=== PATIENT | female | born 1960 | race African-American/Black ===

== ENCOUNTER 2018-09-20 21:28 | Emergency (ER) | payer MEDICARE, MEDICAID ==
[~2018-09-20] VITALS: Ht 162.6 cm; Wt 61.4 kg
[~2018-09-20 21:28] MED LIST: ALBU17AE27 IH; LISI20TA PO; METO25 PO
[2018-09-20] MEDS ORDERED: PREG50 PO (21:38)
[2018-09-20 21:44] LABS: GLUCOSE,POINT OF CARE 138 MG/DL (70-110)
[2018-09-20] MEDS ORDERED: KETOROLAC TROMETHAMINE 30 MG/ML VIAL IM ONE (22:45)
[2018-09-20] MEDS ORDERED: ONDANSETRON HCL 4 MG TABLET PO ONE (23:45)
[2018-09-20 23:53] VITALS: BP 124/96
== END 2018-09-20 23:56 | disposition home or self-care (01) ==
LOC: EMS 21:29
DX: S43.032A Inferior subluxation of left humerus, initial encounter (principal); I11.0 Hypertensive heart disease with heart failure; I50.9 Heart failure, unspecified; E11.9 Type 2 diabetes mellitus without complications; K21.9 Gastro-esophageal reflux disease without esophagitis; G89.29 Other chronic pain; F17.210 Nicotine dependence, cigarettes, uncomplicated; Z90.10 Acquired absence of unspecified breast and nipple; Z85.3 Personal history of malignant neoplasm of breast; Z88.6 Allergy status to analgesic agent; Z88.5 Allergy status to narcotic agent; Z88.0 Allergy status to penicillin; Z88.2 Allergy status to sulfonamides; Z79.899 Other long term (current) drug therapy; X58.XXXA Exposure to other specified factors, initial encounter; Y93.89 Activity, other specified; Y92.89 Other specified places as the place of occurrence of the external cause; Y99.8 Other external cause status
CPT/HCPCS: 73030; 82962; 96372; 99283; J1885; Q0162

== ENCOUNTER 2024-05-30 15:30 | Emergency (ER) | payer MEDICARE, MEDICAID ==
[~2024-05-30] VITALS: Ht 162.6 cm; Wt 56.8 kg
[~2024-05-30 15:30] MED LIST changes: +PREG50 PO
[2024-05-30 15:43] VITALS: TEMP 98.2
[2024-05-30] MEDS: SODIUM PHOSPHATE,MONO-DIBASIC 133 ML ENEMA PR ONE (18:36)
[2024-05-30] MEDS ORDERED: POLY119P3 PO (19:32)
[2024-05-30 20:01] VITALS: BP 154/76; PULSE 75; RESP 18
== END 2024-05-30 20:06 | disposition home or self-care (01) ==
LOC: EMS 15:35
DX: K56.41 Fecal impaction (principal); J44.9 Chronic obstructive pulmonary disease, unspecified; E11.9 Type 2 diabetes mellitus without complications; K21.9 Gastro-esophageal reflux disease without esophagitis; I11.0 Hypertensive heart disease with heart failure; I50.9 Heart failure, unspecified; Z88.0 Allergy status to penicillin; Z88.1 Allergy status to other antibiotic agents; Z88.2 Allergy status to sulfonamides; Z88.5 Allergy status to narcotic agent
CPT/HCPCS: 99284; Z7502; Z7610